=== PATIENT | female | born 1985 | race Two or more races ===

== ENCOUNTER 2021-12-31 20:18 | Observation (INO) | payer MEDICAID ==
[~2021-12-31] VITALS: Ht 157.5 cm; Wt 114.3 kg
[2021-12-31] MEDS ORDERED: BLOOD SUGAR DIAGNOSTIC STRIP TEST ONE (21:15)
[2021-12-31] MEDS ORDERED: GLYB2.5T4 PO (23:12)
[2021-12-31] MEDS ORDERED: PRENATAL VITAMIN (23:12)
[2021-12-31] MEDS ORDERED: ALBUTEROL SULFATE (23:50)
== END 2022-01-01 01:35 | disposition home or self-care (01) ==
LOC: 8 EST LDRP 20:18
PROVIDERS: ADMIT Specialist; ATTEND Specialist
DX: O62.9 Abnormality of forces of labor, unspecified (principal); O99.891 Other specified diseases and conditions complicating pregnancy; M54.9 Dorsalgia, unspecified; Z3A.36 36 weeks gestation of pregnancy; W18.2XXA Fall in (into) shower or empty bathtub, initial encounter; Y92.89 Other specified places as the place of occurrence of the external cause; Y93.89 Activity, other specified; Y99.8 Other external cause status
CPT/HCPCS: 59025; 76805; 76818; G0378; 99281

== ENCOUNTER 2022-01-02 23:47 | Inpatient (IN) | payer MEDICAID ==
[~2022-01-02] VITALS: Ht 157.5 cm; Wt 114.3 kg
[~2022-01-02 23:47] MED LIST: ALBUTEROL SULFATE; GLYB2.5T4 PO; PRENATAL VITAMIN
[2022-01-03] MEDS ORDERED: LACTATED RINGERS 1,000 ML IV SCH ×2 (00:45→03:00)
[2022-01-03] MEDS ORDERED: CARBOPROST TROMETHAMINE 250 MCG/ML AMPUL IM PRN (03:00)
[2022-01-03] MEDS ORDERED: METHYLERGONOVINE MALEATE 0.2 MG/ML IM PRN ×2 (03:00→20:00)
[2022-01-03] MEDS ORDERED: NALOXONE HCL 0.4 MG/ML 1ML VIAL IM PRN (03:00)
[2022-01-03] MEDS ORDERED: LIDOCAINE HCL 1% 20ML VIAL (Pyxis) INJ INFIL SCH (03:00)
[2022-01-03] MEDS ORDERED: ALBUTEROL (0.083%) 2.5MG/3ML NEB HHN SCH (03:15)
[2022-01-03] MEDS: BUTORPHANOL TARTRATE 2 MG/ML VIAL IV PRN ×2 (03:16→18:26)
[2022-01-03] MEDS ORDERED: PENICILLIN G POTASSIUM 5 MMU in DEXT 5% WATER 100 ML IV SCH (06:00)
[2022-01-03 06:42] LABS: PARTIAL THROMBOPLASTIN TIME 28.2 sec (23.4-31.0); PROTHROMBIN TIME 10.3 sec (9.6-11.0)
[2022-01-03 07:02] LABS: BASOPHILS % 0.5 % (0.0-2.0); EOSINOPHILS % 2.1 % (0.0-5.0); HEMATOCRIT. 32.2 % (36.0-48.0); HEMOGLOBIN. 10.4 g/dL (12.0-16.0); LYMPHOCYTES % 30.8 % (20.0-50.0); MEAN CORPUSCULAR HEMOGLOBIN 24.6 pg (28.0-32.0); MEAN CORPUSCULAR VOLUME 75.9 fL (81.0-99.0); MEAN PLATELET VOLUME 10.3 fl (7.4-10.4); MONOCYTES % 5.2 % (2.0-8.0); NEUTROPHILS % 61.4 % (40.0-76.0); PLATELET 197 x1000/uL (130-400); RED BLOOD CELL COUNT 4.24 mill/uL (4.2-5.4); RED CELL DISTRIBUTION WIDTH 14.7 % (11.6-14.6)
[2022-01-03] MEDS ORDERED: ROPIVACAINE HCL/PF EPIDURAL 200 ML EP SCH (07:45)
[2022-01-03] MEDS ORDERED: ROPIVACAINE HCL/PF EPIDURAL 200 ML EPI SCH (07:45)
[2022-01-03 07:49] LABS: HEPATITIS B SURFACE ANTIGEN NEGATIVE
[2022-01-03] MEDS ORDERED: PENICILLIN G POTASSIUM 2.5 MMU in DEXTROSE 5% WATER 50 ML IV SCH (10:00)
[2022-01-03] MEDS ORDERED: LACTATED RINGERS 500 ML IV SCH (13:30)
[2022-01-03] MEDS ORDERED: RHO(D) IMMUNE GLOBULIN 300 MCG/SYR IM PRN (20:00)
[2022-01-03] MEDS ORDERED: BENZOCAINE/LANOLIN/ALOE VERA SPRAY TOP PRN (20:00)
[2022-01-03] MEDS ORDERED: DIPHENHYDRAMINE 25MG CAPSULE PO PRN (20:00)
[2022-01-03] MEDS ORDERED: BISACODYL 10MG SUPP PR PRN (20:00)
[2022-01-03] MEDS ORDERED: GLYCERIN/WITCH HAZEL LEAF MEDICATED PAD TOP PRN (20:00)
[2022-01-03] MEDS ORDERED: LANOLIN OINT 7GM TUBE TOP PRN (20:00)
[2022-01-03] MEDS ORDERED: IBUPROFEN 400MG TABLET PO PRN (20:00)
[2022-01-03] MEDS ORDERED: ACETAMINOPHEN WITH CODEINE 300/30MG TABLET PO PRN (20:00)
[2022-01-03] MEDS ORDERED: HEMORRHOIDAL SUPP PR PRN (20:00)
[2022-01-03] MEDS ORDERED: OXYTOCIN 30 UNITS/500ML NS PMX 500 ML IV SCH (20:15)
[2022-01-03] MEDS: IBUPROFEN 800MG TABLET PO PRN (20:29)
[2022-01-03] MEDS: OXYTOCIN 30 UNITS/500ML NS PMX 500 ML IV SCH (20:34)
[2022-01-03] MEDS ORDERED: DOCUSATE SODIUM 100MG CAPSULE PO SCH (21:00)
[2022-01-03 22:40] VITALS: BP 116/60
[2022-01-04] MEDS: OXYTOCIN 30 UNITS/500ML NS PMX 500 ML IV SCH (00:35)
[2022-01-04] MEDS: IBUPROFEN 800MG TABLET PO PRN ×4 (00:39→21:29)
[2022-01-04 06:23] LABS: CLARITY URINE CLOUDY (CLEAR); COLOR URINE ORANGE (YELLOW); KETONES URINE 1+ (NEGATIVE); LEUKOCYTE ESTERASE URINE 2+ (NEGATIVE); NITRITE URINE NEGATIVE (NEGATIVE); OCCULT BLOOD URINE 3+ (NEGATIVE); PROTEIN URINE 1+ (NEGATIVE); SPECIFIC GRAVITY URINE 1.023 (1.005-1.030)
[2022-01-04 06:40] LABS: *AMPHETAMINES SCREEN URINE NEGATIVE (NEGATIVE); *BARBITURATES SCREEN URINE NEGATIVE (NEGATIVE); *BENZODIAZEPINES SCREEN URINE NEGATIVE (NEGATIVE); *COCAINE SCREEN URINE NEGATIVE (NEGATIVE); CANNABINOID URINE SCREEN NEGATIVE (NEGATIVE); METHADONE URINE SCREEN NEGATIVE (NEGATIVE); OPIATES URINE SCREEN NEGATIVE (NEGATIVE); PHENCYCLIDINE URINE SCREEN NEGATIVE (NEGATIVE)
[2022-01-04 07:04] LABS: BASOPHILS % 0.4 % (0.0-2.0); EOSINOPHILS % 1.9 % (0.0-5.0); HEMOGLOBIN. 9.4 g/dL (12.0-16.0); LYMPHOCYTES % 19.1 % (20.0-50.0); MEAN CORPUSCULAR HEMOGLOBIN 24.8 pg (28.0-32.0); MEAN CORPUSCULAR VOLUME 76.7 fL (81.0-99.0); MEAN PLATELET VOLUME 9.5 fl (7.4-10.4); NEUTROPHILS % 71.6 % (40.0-76.0); PLATELET 174 x1000/uL (130-400); RED BLOOD CELL COUNT 3.79 mill/uL (4.2-5.4); RED CELL DISTRIBUTION WIDTH 15.2 % (11.6-14.6)
[2022-01-04 08:00] VITALS: BP 119/56
[2022-01-04] MEDS: SIMETHICONE 80MG TABLET CHEW PO SCH ×2 (09:00→13:00)
[2022-01-04] MEDS: PRENATAL VIT/FE FUMARATE/FA TABLET PO SCH (09:55)
[2022-01-04] MEDS: FERROUS SULFATE 325MG TABLET PO SCH ×2 (09:55→14:16)
[2022-01-04 15:57] VITALS: BP 150/90
[2022-01-04 20:00] VITALS: BP 134/82
[2022-01-05 04:00] VITALS: BP 128/82
[2022-01-05] MEDS: IBUPROFEN 800MG TABLET PO PRN (04:09)
[2022-01-05] MEDS ORDERED: IBUP-2030 PO (07:46)
[2022-01-05 08:00] VITALS: BP 116/71
[2022-01-05] MEDS: FERROUS SULFATE 325MG TABLET PO SCH (08:17)
[2022-01-05] MEDS: PRENATAL VIT/FE FUMARATE/FA TABLET PO SCH (08:18)
== END 2022-01-05 11:00 | disposition home or self-care (01) | DRG 560 ==
LOC: 8 EST LDRP 23:47 → OBSVTOIN 23:48 → 8 EST LDRP 01-03 07:07 → 8 EST A/PP 01-03 22:26
PROVIDERS: ADMIT Specialist; ATTEND Specialist
PROC: 10E0XZZ Delivery of Products of Conception, External Approach (ICD-10-PCS; principal; 2022-01-03)
PROC: 0HQ9XZZ Repair Perineum Skin, External Approach (ICD-10-PCS; 2022-01-03)
DX: O24.425 Gestational diabetes mellitus in childbirth, controlled by oral hypoglycemic drugs (principal); Z37.0 Single live birth; D25.9 Leiomyoma of uterus, unspecified; O65.5 Obstructed labor due to abnormality of maternal pelvic organs; O99.214 Obesity complicating childbirth; O99.02 Anemia complicating childbirth; O34.13 Maternal care for benign tumor of corpus uteri, third trimester; Z20.822 Contact with and (suspected) exposure to COVID-19; O70.0 First degree perineal laceration during delivery; O42.02 Full-term premature rupture of membranes, onset of labor within 24 hours of rupture; Z3A.37 37 weeks gestation of pregnancy; O99.52 Diseases of the respiratory system complicating childbirth; J45.909 Unspecified asthma, uncomplicated
CPT/HCPCS: 36415; 80305; 81003; 82962; 85025; 86592; 86703; 86762; 86850; 86900; 87340; 87426; 94640; 99281; G0378; J0595; J2540; J3490; J7060; J7120; J2590